=== PATIENT | female | born 1965 | race Caucasian/White ===

== ENCOUNTER 2023-08-06 07:59 | Outpatient (CLI) | payer BC, SELFPAY ==
--- NOTE | 2023-08-06 08:15 | US_ITS ---
Patient: IAM VILLATORO Facility:?[facility] Patient ID:?[id number] Site Patient ID:?[id number]. Site :?[id number] Study:?US-Abdomen Procedure DR DONOHUE TO READ-08/06/2023 9:26:55 AM Ordering Physician:?GEORGIA TELLES Final Report: INDICATION: RIGHT INGUINAL CANAL FLUID COLLECTION TECHNIQUE: Ultrasound guided right inguinal soft tissue fluid collection aspiration FINDINGS/PROCEDURE: Couch protocol and time-out procedure was performed completely prior to the procedure as standard protocol. Risks, benefits and alternatives of the procedure including but not limited to risks of bleeding, infection, and injury to surrounding organs were explained in detail to the patient who understood and elected to proceed. Patient signed informed consent form. Pause for the cause performed. Using sterile technique, local anesthesia, and ultrasound guidance, a 5-[place] catheter was used to perform a right-sided inguinal canal fluid aspiration. Trace amount of fluid aspirated. The fluid collection was reducible with an associated loop of bowel representing inguinal hernia. The fluid was present within the inguinal hernia sac which could not be directly accessed IMPRESSION: Ultrasound-guided aspiration of a small amount of fluid from the right inguinal soft tissues. A reducible right inguinal hernia sac is present containing fluid and a loop of bowel. Discussed with Dr. Telles. Dictated by Ventura Donohue MD @ 08/06/2023 12:05:28 PM Signed by:?Ventura Donohue MD @08/06/2023 12:05:28 PM (Electronic Signature)
== END 2023-08-06 08:00 | disposition home or self-care (01) ==
PROVIDERS: PCP Family Medicine; Visit Provider Surgery
DX: R18.8 Other ascites (principal)
CPT/HCPCS: 10005; 87070; 87205